=== PATIENT | male | born 1945 | race Caucasian/White ===

== ENCOUNTER 2020-04-04 09:38 | Day surgery (SDC) | payer MEDICARE, SELFPAY ==
[2020-04-04] VITALS (7 sets, daily range): BP systolic 112–135; BP diastolic 63–79; PULSE 61–66; RESP 9–18; TEMP 36.2–36.8; O2SAT 94–100; BMI 25.0
[2020-04-04] MEDS: GABAPENTIN 300 MG CAPSULE PO (10:24)
[2020-04-04] MEDS: CELECOXIB 200 MG CAPSULE 400 MG PO (10:24)
[2020-04-04] MEDS: LACTATED RINGERS 1,000 ML 42 ML IV ×2 (10:24→12:03)
[2020-04-04] MEDS: ACETAMINOPHEN 325 MG TABLET 975 MG PO (10:24)
--- NOTE | 2020-04-04 10:53 | PM.PREOP ---
Pre-operative Note COVID-19 COVID-19 status: Negative Result date/Date tested (Pos, Neg/Pending): 04/01/20 Interval Note History & Physical reviewed/Exam performed by Physician: Yes Changes to H&P: No
[2020-04-04] MEDS: CLINDAMYCIN 900 MG/50 ML PIGGYBACK 50 MG IV (11:07)
[2020-04-04] MEDS: BUPIVACAINE 0.5% (PF) VIAL 30 ML INJ (11:31)
--- NOTE | 2020-04-04 11:32 | SUR.OPER ---
Supine on padded OR bed, head on pillow, arms secured on padded arm boards at <90 degrees abduction, legs uncrossed, safety belt at thigh, tape over blanket over lower legs.
--- NOTE | 2020-04-04 12:54 | PM.OP.1 ---
Operative Date/Time/Diagnoses Date of procedure: 04/04/20 Time of procedure: 12:30 Pre-op diagnosis: Left inguinal hernia reducible Post-op diagnosis: same (Indirect) Procedure & Clinicians Procedure: Repair with plug and patch technique Same procedure as scheduled: Yes Indications: Symptomatic left inguinal hernia Surgeon: Jg Lazo Click Yes if Unassisted: Yes Anesthesia Type: General Operative Notes Findings: Large sac containing a small amount of colon which was adherent to the sac. Closure Type: primary Specimen(s): none sent Prosthetic devices, grafts, tissues, transplants, or devices: Mesh Estimated Blood Loss (mL): 10 Blood products transfused: none Procedure in detail: The patient was placed supine on the operating room table and underwent general LMA anesthesia. He was prepped and draped in the usual fashion. A transverse incision was made overlying the left internal ring and carried down to the level of the external oblique. The external oblique was opened parallel with its fibers through the external ring. The cord structures were elevated. The cremaster was opened proximally and search made for an indirect sac. Initially what appeared to be a large lipoma was dissected from the cord structures. However after occur full evaluation and very carefully opening I found that this was actually an indirect hernia with a large amount of fat adherent to its internal surfaces. The fat also included a small amount of colon. I dissected this off the sac and returned to the abdomen. A pursestring of 2 0 silk was placed along with 2 0 silk tie. The stump was allowed to retract and a large plug was placed in the defect created by it. It was tacked into place with interrupted 0 Ethibond. The cremaster was closed over the area with interrupted 3 0 Vicryl.. The floor was examined and was found to be weakened.. A patch was placed across the floor and tacked at the pubic tubercle, the posterior lamella of the anterior rectus sheath, the ilioinguinal ligament, and superior lateral to the cord. The opening was modified as necessary to prevent tight constriction of the cord. Sutures of 0 Ethibond were used to secure the mesh. The external oblique was closed with a running 3 0 Vicryl. The subcu was closed with interrupted 4 0 Vicryl. The skin was closed with a running 4 0 Vicryl subcuticular stitch and Steri-Strips. Dressing was applied, the patient was awakened, and the patient was taken to the recovery area in good condition. Complications: none Post-operative Condition: stable Disposition: PACU
--- NOTE | 2020-04-04 12:55 | SUR.PHASEI ---
Report from Radha pt arousable dening pain.
== END 2020-04-04 14:20 | disposition home or self-care (01) ==
PROVIDERS: PCP Urology; Referring Provider Specialist; Visit Provider Specialist
PROC: (CPT 49505; principal; 2020-04-04 10:45)
DX: K40.30 Unilateral inguinal hernia, with obstruction, without gangrene, not specified as recurrent (principal); D51.0 Vitamin B12 deficiency anemia due to intrinsic factor deficiency
CPT/HCPCS: 49505; C1781; J1100; J2405; J2704; J3010

== ENCOUNTER → 2022-04-06 19:24 | Outpatient (ROUT) | payer MEDICARE, SELFPAY ==
[2022-04-06 19:39] LABS: Add Manual Diff / Slide Review NO; Basophils Absolute Auto 0 /uL (0-100); Basophils Percent Auto 0.8 % (0-2); Eosinophils Absolute Auto 0 /uL (0-450); Eosinophils Percent Auto 0.8 % (2-4); Hematocrit 39.1 % (41-53); Hemoglobin 13.6 g/dL (13.5-17.5); Lymphocytes Absolute Auto 1400 /uL (1100-4500); Lymphocytes Percent Auto 24.6 % (25-40); Mean Corpuscular HGB Conc 34.9 % (30-36); Mean Corpuscular Hemoglobin 31.2 PG (26-34); Mean Corpuscular Volume 89.4 fL (80-100); Monocytes Absolute Auto 400 /uL (0-900); Monocytes Percent Auto 7.1 % (3-14); Neutrophils Absolute Auto 3700 /uL (1500-7000); Neutrophils Percent Auto 66.7 % (50-75); Platelet Count 202 X10^3/uL (150-400); Red Blood Cell Count 4.38 X10^6/uL (4.5-5.9); Red Cell Distribution Width 13.8 % (11.6-14.8); White Blood Cell Count 5.6 X10^3/uL (4.5-11.0)
[2022-04-07 00:59] LABS: HEMOLYSIS < 15 (0-50)
[2022-04-07 01:06] LABS: Alanine Aminotransferase 14 IU/L (<50); Albumin Globulin Ratio 1.5 (1.0-2.8); Alkaline Phosphatase 42 U/L (38-126); Aspartate Aminotransferase 26 IU/L (17-59); BUN Creatinine Ratio 19.1 (6-22); Bilirubin Total 0.6 mg/dL (0.2-1.3); Blood Urea Nitrogen 18 mg/dL (9-20); Calcium 9.1 mg/dL (8.4-10.2); Carbon Dioxide 29 mmol/L (22-32); Chloride 104 mmol/L (98-107); Cholesterol 180 mg/dL (140-199); Estimated Glomerular Filt Rate > 60 mL/min (>60); Globulin 2.7 g/dL (1.7-4.1); Glucose 94 mg/dL (80-110); HDL Cholesterol 63 mg/dL (40-60); LDL Cholesterol Calculated 93 mg/dL (<100); Potassium 4.7 mmol/L (3.4-5.1); Sodium 139 mmol/L (137-145); Total Protein 6.7 g/dL (6.3-8.2); Triglycerides 119 mg/dL (35-150)
[2022-04-07 01:36] LABS: Thyroid Stimulating Hormone 0.948 uIU/mL (0.47-4.68)
[2022-04-08 15:15] LABS: Prostate Specific Antigen 15.3 ng/mL (0.10-4.00)
[2022-04-08 15:51] LABS: Folate 6.2 ng/mL (2.76-20.0); Vitamin B12 777 pg/mL (239-931)
== END ==
PROVIDERS: PCP Urology; Visit Provider Nurse Practitioner
DX: D51.0 Vitamin B12 deficiency anemia due to intrinsic factor deficiency (principal); C61 Malignant neoplasm of prostate; R63.4 Abnormal weight loss; R53.83 Other fatigue
CPT/HCPCS: 80053; 80061; 82607; 82746; 84153; 84443; 85025

== ENCOUNTER → 2022-07-16 15:04 | Outpatient (CLI) | payer MEDICARE, SELFPAY ==
[2022-07-16 17:38] LABS: Prostate Specific Antigen 14.7 ng/mL (0.10-4.00)
[2022-07-16 18:14] LABS: Folate 6.9 ng/mL (2.76-20.0); Vitamin B12 742 pg/mL (239-931)
== END ==
PROVIDERS: PCP Nurse Practitioner; Referring Provider Nurse Practitioner; Visit Provider Nurse Practitioner
DX: D40.0 Neoplasm of uncertain behavior of prostate (principal); C61 Malignant neoplasm of prostate; D51.0 Vitamin B12 deficiency anemia due to intrinsic factor deficiency
CPT/HCPCS: 36415; 82607; 82746; 84153